=== PATIENT | female | born 1945 | race Caucasian/White ===

== ENCOUNTER → 2024-06-27 13:53 | Outpatient (REF) | payer OTHER, SELFPAY | LOC: HWRCS 13:53 | PROVIDERS: ATTENDING PHYSICIAN Internal Medicine Cardiovascular Disease; FAMILY PHYSICIAN Emergency Medicine | DX: I35.0 Nonrheumatic aortic (valve) stenosis (principal) | CPT/HCPCS: 93306 ==

== ENCOUNTER → 2025-01-30 14:40 | Outpatient (REF) | payer OTHER, SELFPAY | LOC: HWRCS 14:40 | PROVIDERS: ATTENDING PHYSICIAN Internal Medicine Interventional Cardiology; FAMILY PHYSICIAN Emergency Medicine | DX: I35.0 Nonrheumatic aortic (valve) stenosis (principal) | CPT/HCPCS: 93306 ==